=== PATIENT | male | born 1945 | race Caucasian/White ===

== ENCOUNTER 2017-07-11 03:17 | Emergency (ER) | payer OTHER ==
[2017-07-11] MEDS ORDERED: EPINEPHrine 1 MG/10 ML SYR IVP ONE (03:18)
[2017-07-11] MEDS ORDERED: SODIUM BICARBONATE 50 MEQ/50 ML SYR IV ONE (03:18)
[2017-07-11 03:40] LABS: PLATELET COUNT 285 10^3/uL (150-400)
[2017-07-11] MEDS ORDERED: PROPOFOL/EMULSION 1,000 MG/100 ML BOTTLE IV ONE (03:41)
[2017-07-11 03:48] VITALS: BP 33/26
[2017-07-11] MEDS ORDERED: NOREPINEPHRINE 4 MG/4 ML INJ IV ONE (03:57)
[2017-07-11] MEDS ORDERED: NS 100 ML BAG IV ONE (03:57)
[2017-07-11] MEDS ORDERED: NOREPINEPHRINE/NS 4 MG/500 ML BAG IV ONE (03:58)
[2017-07-11] MEDS ORDERED: ALTEPLASE 100 MG/100 ML VIAL IV ONE (04:25)
[2017-07-11] MEDS ORDERED: FUROSEMIDE 100 MG/10 ML VIAL ONE (04:31)
[2017-07-11] MEDS ORDERED: LIDOCAINE 1% 300 MG/30 ML SDV ONE (04:46)
[2017-07-11] MEDS ORDERED: MIDAZOLAM 2 MG/2 ML VIAL ONE ×2 (04:47)
[2017-07-11] MEDS ORDERED: IOPAMIDOL (ISOVUE-370) 150 ML BTL IV ONE (04:47)
[2017-07-11] MEDS ORDERED: fentaNYL 100 MCG/2 ML INJ ONE (04:47)
--- NOTE | 2017-07-11 05:44 | EDPHY ---
H & P Stated Complaint: cardiac arrest after respiratory difficulty' Time Seen by Provider: 07/11/17 03:31 HPI/ROS: Chief Complaint: Cardiac arrest HPI: 71-year-old male with a history of COPD per family has been having upper respiratory symptoms for the last couple weeks with worsening shortness of breath. This morning the patient woke up and complained was with severe shortness breath. Does unable to really get any other questions out of him and called 911. On EMS arrival the patient with extreme short of breath and complaining of generalized discomfort. He then lost consciousness and went into an asystolic arrest. An IO was placed in the patient received epinephrine and chest compressions were started. Family denies any fevers or chills. Denies any cardiac history that they are aware of. ROS: 10 point Review of Systems is negative except as noted in the HPI. PMH: COPD Social History: Smoking history Family History: non-contributory Physical Exam: Gen: Responsive, CPR in progress HEENT: Eyes: Pupils 3 mm and unreactive bilaterally, Mouth: Moist mucosa Neck: Supple, no JVD Chest: , diffusely diminished, right-sided diminished greater than left Comp use crackles Heart: Asystolic Abd: Soft, distended Ext: no edema, Skin: Pallor Constitutional: Initial Vital Signs Blood Pressure 33/26 L 07/11/17 03:20 Allergies/Adverse Reactions: No Known Allergies Allergy (Unverified 07/11/17 03:48) Home Medications: Medication Instructions Recorded Albuterol Sulfate [Proair Hfa] 8.5 gm 07/11/17 Budesonide/Formoterol 160/4.5 07/11/17 [Symbicort 160-4.5 Mcg Inh (*)] Carvedilol 12.5 mg PO 07/11/17 Furosemide [Lasix 20 MG (*)] 20 mg PO 07/11/17 Losartan Potassium 100 mg PO 07/11/17 Plavix 07/11/17 Potassium Chlorate 1 gm 07/11/17 Roflumilast [Daliresp] 500 mcg PO 07/11/17 Tiotropium [place] [Spiriva 4 gm IH 07/11/17 Respimat] buPROPion XL [Wellbutrin Xl] 150 mg PO DAILY 07/11/17 Medical Decision Making - Diagnostics EKG Interpretation: ECG time 3:31 a.m., sinus tachycardia with 155, first-degree AV block, right bundle-branch block. This is new compared priors. Procedures: Procedure note RSI intubation Indication for the procedure was cardiac arrest. The patient was preoxygenated with 100% oxygen by valve mask. The patient was orally endotracheally intubated under direct visualization with a 8.0 ETT. Tracheal intubation was confirmed with misting on the tube; breath sounds were auscultated equally bilaterally; appropriate color change with [place] Tidal CO2 detector, capnography waveform is appropriate, oxygen saturation after procedure is undetectable is the patient is a cardiac arrest. Chest X-ray shows ETT in good position. The procedure was performed by myself. Procedure: Central line placement. Indication: Cardiac arrest, requires pressors. Verbal informed consent was obtained, with the risks explained to include but not be limited to bleeding, infection, and collapsed lung. A timeout was observed and patients identity and correct procedure location confirmed. Full maximal sterile barrier technique was uses including cap, gown, sterile gloves, large sheet, hand washing and chlorhexidine prep. The right femoral vein was punctured with a 19 gauge finder needle, then a triple-lumen cold catheter was placed using standard Seldinger technique. There were no complications. Blood return low pressure, dark blood. The procedure was performed by myself. Procedure: Chest tube placement. The indication for the procedure was right pneumothorax status post CPR. A timeout was observed and patients identity and correct procedure location confirmed. The patient was prepped in a sterile fashion. The patient was anesthetized with 1% lidocaine with epinephrine. After blunt dissection a 28 Mexican chest tube was placed in the 4th intercostal space on the right side. The tube was sutured in place and dressed. Post placement chest x-ray demonstrated the tube to be in the appropriate position. Following placement of the tube the patient's condition was unchanged. The patient tolerated the procedure well there were no complications. The procedure was performed by myself. ED Course/Re-evaluation: 31-year-old male presenting with shortness of breath needing to asystole arrest. On arrival pains asystolic. IV access was obtained. Immediately on arrival patient was RSI intubated by me. Patient given 1 mg of epinephrine IV. This resulted in a conversion to PE a followed by a ventricular tachycardia. Patient was cardioverted 300 joules DC cardioversion. Resulted in a sinus rhythm. Patient had pulses following this was hypertensive. Case discussed with Dr. Bowers, cardiology. He will see the patient in the ED. Patient dropped blood pressure and became pulseless. After short course of CPR and IV epinephrine he regained pulses and a blood sugar once again. Chest x- ray right pneumothorax. Cooling central line placed in the right femoral vein by me. Dr. Bowers at the bedside. Consult of Dr. Bowers pituitary given that those cardiac is likely secondary to respiratory process. Given the multiple periods of pulselessness and findings on his ECG this is concerning for massive PE. Dr. Cortez and I are agreement the administration of IV tPA. 50 mg initial push ordered. Patient lost pulses again. Regained a after short course CR and epinephrine. Right chest tube placed by me. Patient have an echocardiogram done at this time. Global hypokinesis with a dilated right ventricle. Patient gas pulse. Conversation with family, Dr. Garcia myself and Dr. Vela. Given the findings on the echocardiogram he is not finding any lesions that would likely be amenable PTCA. Patient received appropriate STEMI dose of tPA without any effect. He patient's lung is related after chest tube placement still has a large likely pneumonia. At this point any further care will likely be futile. We discussed this with patient's family who are at the bedside. Review. Care is withdrawal. Time of is 5:16 a.m.. 8-year-old male with a likely respiratory caused cardiac arrest. ECG is consistent with this. Patient has had multiple episodes of losing his pulses despite being on epinephrine Levophed drip here. He has got diffuse hypokinesis on his echo. Patient did receive tPA in the possibility that he had a massive PE with no significant results. Critical Care Time: I spent a total of 75 minutes of critical care time in obtaining history, performing a physical exam, bedside monitoring of interventions, collecting and interpreting tests and discussion with consultants but not including time spent performing procedures. - Data Points Laboratory Results: Laboratory Results 07/11/17 03:20 07/11/17 03:20 07/11/17 07/11/17 07/11/17 03:34 03:20 03:20 WBC 13.26 10^3/uL H 10^3/uL (3.80-9.50) RBC 3.99 10^6/uL L 10^6/uL (4.40-6.38) Hgb 13.6 g/dL L g/dL (13.7-17.5) Hct 45.0 % % (40.0-51.0) MCV 112.8 fL H fL (81.5-99.8) MCH 34.1 pg pg (27.9-34.1) MCHC 30.2 g/dL L g/dL (32.4-36.7) RDW 14.2 % % (11.5-15.2) Plt Count 285 10^3/uL 10^3/uL (150-400) MPV 8.9 fL fL (8.7-11.7) Neut % (Auto) Not Reported Lymph % (Auto) Not Reported Ocean % (Auto) Not Reported Eos % (Auto) Not Reported Baso % (Auto) Not Reported Nucleat RBC Rel Count 1.3 % H % (0.0-0.2) Absolute Neuts (auto) Not Reported Absolute Lymphs (auto) Not Reported Absolute Monos (auto) Not Reported Absolute Eos (auto) Not Reported Absolute Basos (auto) Not Reported Absolute Nucleated RBC 0.17 10^3/uL H 10^3/uL (0-0.01) Immature Gran % Not Reported Seg Neutrophils % 30 % % Band Neutrophils % 21 % % Lymphocytes % 28 % % Monocytes % 15 % % Eosinophils % 4 % % Basophils % 1 % % Metamyelocytes % 1 % % Immature Gran # Not Reported Absolute Seg Neuts 3.98 10^/uL 10^/uL (1.70-6.50) Absolute Band Neuts 2.78 10^3/uL H 10^3/uL (0.00-0.70) Absolute Lymphocytes 3.71 10^3/uL H 10^3/uL (1.00-3.00) Absolute Monocytes 1.99 10^3/uL H 10^3/uL (0.30-0.80) Absolute Eosinophils 0.53 10^3/uL H 10^3/uL (0.03-0.40) Absolute Basophils 0.13 10^3/uL H 10^3/uL (0.02-0.10) Absolute Metamyelocyte 0.13 10^3/mL H 10^3/mL (0.00-0.00) Nucleated RBCs 2 /100 WBC H /100 WBC (0-0) Atypical Lymphocytes 1+ H Platelet Estimate ADEQUATE (ADEQ) Polychromasia 1+ H Oval Macrocytes 1+ H Smear Review By Pending Puncture Site RIGHT RADIAL Patient Temperature 34.0 DEGREES DEGREES pCO2 75 mmHg H* mmHg (34-38) pO2 91 mmHg H mmHg (65-75) Total CO2 30 mEq/L H mEq/L (23-27) ABG pH 7.16 L* (7.35-7.45) ABG PO2/FiO2 Ratio 91 RATIO RATIO ABG HCO3 27 mEq/L H mEq/L (22-26) ABG O2 Saturation 96 % H % (92-95) ABG Base Excess -3.9 mEq/L L mEq/L (-2.5-2.5) O2 Concentration % 100 % % (0-100) Actual Respiration Rate 22 Set Respiration Rate 22 SIMV YES Tidal Volume 600 PEEP 5 Peak Inspir Pressure 41.9 Pressure Support 7 Sodium 144 mEq/L mEq/L (134-144) Potassium 5.1 mEq/L mEq/L (3.5-5.2) Chloride 97 mEq/L mEq/L (97-110) Carbon Dioxide 37 mEq/l H mEq/l (22-31) Anion Gap 10 mEq/L mEq/L (8-16) BUN 16 mg/dL mg/dL (7-23) Creatinine 0.9 mg/dL mg/dL (0.7-1.3) Estimated GFR > 60 Glucose 226 mg/dL H mg/dL (70-100) Calcium 9.6 mg/dL mg/dL (8.5-10.4) Total Bilirubin 0.9 mg/dL mg/dL (0.1-1.4) AST 84 IU/L H IU/L (17-59) ALT 76 IU/L H IU/L (21-72) Alkaline Phosphatase 88 IU/L IU/L (38-126) Troponin I 0.023 ng/mL ng/mL (0.000-0.034) Total Protein 6.5 g/dL g/dL (6.3-8.2) Albumin 3.6 g/dL g/dL (3.5-5.0) Medications Given: Epinephrine HCl 1 mg/ Dextrose 250 mls @ 0 mls/hr IV CONT LEANNE; Per Protocol PRN Reason: Protocol Stop: 01/07/18 04:29 Last Admin: 07/11/17 04:30 Dose: 250 mls Departure - Departure Disposition: Clinical Impression: Cardiac arrest Referrals: Stu Hebert MD [Primary Care Provider] - As per Instructions
--- NOTE | 2017-07-11 06:30 | GCON ---
[f rep st] CONSULTATION HOSPITALIST CONSULTATION DATE OF CONSULTATION: 07/11/2017 SOURCE: Case discussed with ED provider, counselor supervisor and the patient's family who is at bedside. The patient intubated and receiving CPR at the time my interview. CHIEF COMPLAINT: Shortness of breath. HISTORY OF PRESENT ILLNESS: This is a 71-year-old gentleman with past medical history significant for COPD, coronary artery disease with history of [place] with stents several years ago, who presents to the emergency department via EMS with initially complaints of increasing respiratory distress. reports the patient has been ill for the last nearly week with increasing cough, shortness of breath. No fevers, chills, nausea, vomiting, abdominal pain, or diarrhea. Unknown if patient had any complaints of chest pain. The patient arrested when EMS arrived to the home and CPR was initiated. The patient was noted to be in PEA. He arrived and received epinephrine, CPR continued. He was noted to be in ventricular tachycardia, cardioverted with return to normal sinus rhythm. The patient had 4 cycles of CPR. Cardiology was consulted and stat echocardiogram was obtained showing right heart strain and diminished LV function. Concern was for large central emboli and patient received tPA. Chest x-ray subsequently revealed a right-sided pneumothorax, for which the patient underwent chest tube placement with reexpansion. The patient subsequently had several more episodes of pulseless activity and CPR was resumed. Family remained at bedside, and after several more rounds of CPR requested that all efforts be stopped. PAST MEDICAL HISTORY: Able to obtain some data discussing with and family. ALLERGIES: No known drug allergies. PAST MEDICAL HISTORY: Significant for COPD, coronary artery disease with history of stent placement, peripheral vascular disease with stent placement, atrial fibrillation. PAST SURGICAL HISTORY: Cath angiogram with stents as above. FAMILY HISTORY: Negative for DVT, PE. Father with history of CHF. SOCIAL HISTORY: Patient with continued use of tobacco. No drugs or alcohol. PHYSICAL EXAMINATION: Chart was reviewed and vital signs reviewed including laboratory studies and initial imaging. Exam was limited as the patient was intermittently receiving CPR. Patient chronically ill-appearing, intubated, obese, older gentleman, elizabeth in color. LABORATORY STUDIES: WBC 13.2, H and H 13.6/45.0, MCV 112.8, platelet count 285 , patient with a bandemia 21%. ABG: pH 7.16, pCO2 is 75, PO2 is 91, CO2 is 30 , bicarb 27, O2 saturation 96, base excess -3.9. BMP: Sodium 144, potassium 5.1, chloride 97, CO2 is 37, anion gap 10, BUN 16, creatinine 0.9, GFR greater than 60, glucose 226, calcium 9.6, total bilirubin 0.9, ALT 26, AST is 84, alkaline phosphatase 88, troponin 0.023, total protein 6.5, albumin 2.6. EKG reviewed by myself showing sinus tachycardia 140s, PVCs, 1st degree AV block and a new right bundle branch block, per Dr. Bowers. Chest x-ray was reviewed with ER provider and counselor supervisor, initial with a right-sided pneumothorax and diffuse infiltration on the right with a focal consolidation in the right lower lung field. Repeat chest x-ray with reexpansion of the long chest tube placement. ASSESSMENT/PLAN: 1. As above, requested that all resuscitative efforts be held. Suspect patient developed respiratory compromise, likely related to a large pulmonary embolus versus chronic obstructive pulmonary disease. He also had a pneumothorax, which is possibly spontaneous in setting of history of chronic obstructive pulmonary disease versus secondary to cardiopulmonary resuscitation efforts. 2. Cardiogenic shock, which initially did respond to epinephrine, but continued to require continuous infusion. 3. Acute respiratory failure with hypoxia. Time of called at 0516. Greater than 35 minutes critical care time spent including discussion with the family on several occasions and discussion with consultants and the ER provider. /[id number]/MODL MTDD
--- NOTE | 2017-07-11 07:51 | GCON ---
[f rep st] CONSULTATION NO DICTATION /[id number]/MODL
--- NOTE | 2017-07-11 08:31 | GCON ---
[f rep st] CONSULTATION CRITICAL CARE NOTE SUMMARY OF PRESENTATION AND COURSE: Mr. Bill is a 71-year-old gentleman with known coronary artery disease status post stenting of his circumflex coronary artery in 2007, and known COPD with an FEV1 l ess than 30%, who presented to the emergency department on 07/11/2017, with shortness of breath. The patient was in his usual state of health until approximately 1 week prior to admission, when he bega n to experience symptoms of progressive dyspnea and coughing. Patient thought his home oxygen may no t be working. On the raw products director of admission, patient woke up and was extremely short of breath a nd told his he needed to present to the emergency department. She called EMS and when EMS arriv ed, patient became unconscious. His initial rhythm was asystole. The patient was treated with CPR an d brought to the emergency department for further evaluation. In the emergency department, he was tr eated with epinephrine with the development of pulseless electrical activity. This was followed by a wide-complex rhythm and he was treated with DC cardioversion x2. Following cardioversion, he was fo und to be in a perfusing rhythm. Initial workup was begun. His laboratory returned with a hemoglobin of 13.6, a potassium of 5.1, and a pH of 7.16. The patient was treated with bicarbonate. His initial EKG demonstrated sinus tachycardia with premature ventricul ar contractions, a new right bundle branch block and no acute ST or T-wave changes. His initial trop onin was within normal limits. The patient's chest x-ray returned demonstrating a right lower lobe i nfiltrate and right-sided pneumothorax which did not appear to be a tension pneumothorax. The patient was treated with a chest tube with resolution of his pneumothorax, however, the infiltrate persisted . Bedside echocardiography demonstrated no evidence of pericardial effusion or tamponade. The patient 's right ventricle with akinetic. His left ventricle is globally hypokinetic. The patient continued to have episodes of pulseless electrical activity which would respond to CPR, as well as the epinephr ine. He was given tPA for potential pulmonary embolism versus myocardial infarction as he was too uns table to go for further testing. The patient continued to have episodes of pulseless electrical activ ity. After discussion with Dr. Capellan, Dr. Vela and patient's , it was decided to halt resuscita tive efforts 2 hours after initiation of therapy. The patient subsequently , likely second katja to a primary respiratory arrest. Approximate critical care time was 1 hour with this patient. /[id number]/MODL
== END 2017-07-11 05:16 | disposition expired ==
PROC: 0W9930Z Drainage of Right Pleural Cavity with Drainage Device, Percutaneous Approach (ICD-10-PCS; principal; 2017-07-11)
PROC: 0BH17EZ Insertion of Endotracheal Airway into Trachea, Via Natural or Artificial Opening (ICD-10-PCS; 2017-07-11)
PROC: 06HM33Z Insertion of Infusion Device into Right Femoral Vein, Percutaneous Approach (ICD-10-PCS; 2017-07-11)
DX: I46.9 Cardiac arrest, cause unspecified (principal); J44.9 Chronic obstructive pulmonary disease, unspecified; Z87.891 Personal history of nicotine dependence
CPT/HCPCS: 31500; 32551; 36556; 71010; 92950; 93306; 96374; 99291; 99292; J1940; J2250; J2704; J2997; J1644; J3010; Q9967